=== PATIENT | female | born 1975 | race Caucasian/White ===

== ENCOUNTER 2016-12-03 09:30 | Emergency (ER) | payer MEDICAID ==
[~2016-12-03] VITALS: Wt 71.0 kg
[2016-12-03] MEDS ORDERED: ALBUTEROL 0.083% (NEB) 2.5 MG/3 ML AMP HHN STA (10:27)
[2016-12-03] MEDS ORDERED: predniSONE 20 MG TAB PO ONE (10:30)
[2016-12-03] MEDS ORDERED: CETI10CA PO (10:33)
[2016-12-03] MEDS ORDERED: FLUT9.9S NASAL (10:33)
[2016-12-03] MEDS ORDERED: PRED20TA PO (10:33)
[2016-12-03] MEDS ORDERED: ALBU8.5H3 INH (10:33)
--- NOTE | 2016-12-03 11:16 | ERD ---
ER Documentation Chief Complaint Date/Time DATE: 12/03/16 TIME: 11:14 Chief Complaint FLU SYMPTOMS X 3 DAYS HPI 41-year-old female comes emergency department cough, runny nose, congestion for 3 days. She reports that she does not have any history of asthma but states that she has been wheezing. She has suffered from allergy symptoms, complains of runny nose, and scant scratchy throat. She denies any fevers, chills. ROS All systems reviewed and are negative except as per history of present illness. Medications Home Meds Active Scripts Albuterol Sulfate* (Proair HFA*) 8.5 Gm Hfa.aer.ad, 2 PUFF INH Q4, #1 INHALER Prov:VERENICE HALL PA-C 12/03/16 Prednisone* (Prednisone*) 20 Mg Tab, 40 MG PO DAILY for 4 Days, TAB Prov:VERENICE HALL PA-C 12/03/16 Cetirizine Hcl* (Zyrtec*) 10 Mg Capsule, 10 MG PO DAILY, #60 TAB.CHEW Prov:VERENICE HALL PA-C 12/03/16 Fluticasone Propionate (Flonase Allergy Relief) 9.9 Ml [place].susp, 1 SPRAY NASAL BID, #1 BOTTLE TO EACH NOSTRIL Prov:VERENICE HALL PA-C 12/03/16 Allergies Allergies: Coded Allergies: No Known Allergy (Unverified , 01/26/15) PMhx/Soc Medical and Surgical Hx: pt denies Medical Hx, pt denies Surgical Hx Hx Alcohol Use: No Hx Substance Use: No Hx Tobacco Use: No Physical Exam Vitals Vital Signs Date Time Temp Pulse Resp B/P Pulse Ox O2 Delivery O2 Flow Rate FiO2 12/03/16 10:51 88 20 96 21 12/03/16 09:31 98.0 78 18 123/71 99 Physical Exam General: Well-developed, well-nourished. The patient appears in no acute distress. HEENT: Head is normocephalic, atraumatic. No scleral icterus. Oropharynx is clear, TMs normal. Neck: Supple. Nontender. Lungs: Scant wheezing in upper lung maldonado, no rales or rhonchi. Heart: Regular rate and rhythm. S1 and S2 are normal. No murmurs, gallops, or rubs. Abdomen: Nondistended. Extremities: No clubbing or cyanosis. Moving extremities x 4. No weakness. Neurologic: Alert and oriented 3. No focal deficits. Normal speech and gait. Skin: Normal turgor. No rash or lesions. Results 24 hrs Current Medications Medications (Trade) Dose Ordered Sig/Rivas Route PRN Reason Start Time Stop Time Status Last Admin Dose Admin Albuterol (Proventil 0.083% (Neb)) 5 mg ONCE STAT HHN 12/03/16 10:27 12/03/16 10:29 DC 12/03/16 10:50 Prednisone (Prednisone) 40 mg ONCE ONCE PO 12/03/16 10:30 12/03/16 10:31 DC 12/03/16 10:32 Procedures/MDM ED course: Patient was given prednisone, as well as albuterol nebulized breathing treatment. She was re auscultated and sounded clear and reports symptomatic improvement. The patient is a 41-year-old female who comes in with an acute upper respiratory infection, presumed viral, wheezing, allergic rhinitis. The patient has a differential diagnosis of a viral upper respiratory infection, bacterial upper respiratory infection, bronchitis, pneumonia, pharyngitis, laryngitis, epiglottitis, croup, pneumonia. Patient has a normal pulmonary examination, clear breath sounds, normal pulse oximetry, with no corrective measures needed at this time. Fluids, rest, antipyretics were encouraged. Departure Diagnosis: Primary Impression: Upper respiratory infection Condition: Good Patient Instructions: Allergic Rhinitis, Uri, Viral W/ Wheezing (Adult) Additional Instructions: Llame al doctor MAANA y vinnie mary BRITTNEY PARA DENTRO DE 1-2 WILDE.Dgale a la secretaria que nosotros le instruimos hacer esta brittney.Avise o llame si brannon condicin se empeora antes de la brittney. Regresa aqui si peor o no mejor. VERENICE HALL PA-C Dec 03, 2016 11:15
[2016-12-03 11:29] VITALS: BP 128/77; PULSE 96; RESP 18; TEMP 98
== END 2016-12-03 11:30 | disposition home or self-care (01) ==
LOC: FTE 09:30
DX: J06.9 Acute upper respiratory infection, unspecified (principal)
CPT/HCPCS: 94664; J7512; Z7502; Z7610

== ENCOUNTER 2017-06-15 15:27 | Emergency (ER) | payer MEDICAID ==
[~2017-06-15] VITALS: Ht 157.5 cm; Wt 73.0 kg
[~2017-06-15 15:27] MED LIST: ALBU8.5H3 INH; CETI10CA PO; FLUT9.9S NASAL; PRED20TA PO
[2017-06-15 15:31] VITALS: Ht 157.5 cm; Wt 73.0 kg
[2017-06-15] MEDS ORDERED: KETOROLAC 15 MG INJ IM STA (16:27)
--- NOTE | 2017-06-15 16:33 | ERD ---
ER Documentation Chief Complaint Date/Time DATE: 06/15/17 TIME: 16:25 Chief Complaint right arm and right side numbness HPI Right sided neck pain and tingeing , right sided camacho pain x 2 months ROS All systems reviewed and are negative except as per history of present illness. Medications Home Meds Active Scripts Diazepam* (Valium*) 5 Mg Tablet, 5 MG PO Q8 for MUSCLE SPASMS, #10 TAB Prov:PANDA,ARAVIND 06/15/17 Naproxen* (Naprosyn*) 500 Mg Tablet, 500 MG PO BID Y for PAIN AND/OR INFLAMMATION, #20 TAB Prov:PANDA,ARAVIND 06/15/17 Albuterol Sulfate* (Proair HFA*) 8.5 Gm Hfa.aer.ad, 2 PUFF INH Q4, #1 INHALER Prov:VERENICE HALL PA-C 12/03/16 Prednisone* (Prednisone*) 20 Mg Tab, 40 MG PO DAILY for 4 Days, TAB Prov:VERENICE HALL PA-C 12/03/16 Cetirizine Hcl* (Zyrtec*) 10 Mg Capsule, 10 MG PO DAILY, #60 TAB.CHEW Prov:VERENICE HALL PA-C 12/03/16 Fluticasone Propionate (Flonase Allergy Relief) 9.9 Ml [place].susp, 1 SPRAY NASAL BID, #1 BOTTLE TO EACH NOSTRIL Prov:VERENICE HALL PA-C 12/03/16 Allergies Allergies: Coded Allergies: No Known Allergy (Unverified , 01/26/15) PMhx/Soc History of Surgery: Yes () Anesthesia Reaction: No Hx Neurological Disorder: No Hx Respiratory Disorders: No Hx Cardiac Disorders: Yes (HTN, HEART MURMUR) Hx Psychiatric Problems: No Hx Miscellaneous Medical Probl: No Hx Alcohol Use: Yes (OCCASSIONAL) Hx Substance Use: No Hx Tobacco Use: No Smoking Status: Never smoker Physical Exam Vitals Vital Signs Date Time Temp Pulse Resp B/P Pulse Ox O2 Delivery O2 Flow Rate FiO2 06/15/17 15:31 98.0 77 19 175/92 100 Vitals stable, triage notes reviewed, patient noted to have blood pressure elevation at 175/92, patient reports she has hypertension and is on medication. Physical Exam Const: [ All nourished well-appearing well-hydrated 41-year-old female no acute distress Head: Eyes: Normal Conjunctiva, PERRLA, EOMI ENT: Neck: Nontender over bony prominence of the cervical spine, right- sided paraspinal tenderness, trapezial tenderness, and parascapular tenderness Resp: Patient is even and unlabored, no chest wall tenderness clear to auscultation bilaterally Cardio: Abd: Skin: No petechiae or rashes and no ecchymosis, laceration or abrasion Back Exam: Skin: No bruising or rash Compartments: Soft Motor: Leg rises live at 80, pain with abduction described as pulling sensation in lower back. Sensation: Intact to light touch throughout Bones: No midline TTP Ext: No cyanosis, or edema Neuro: M/S: Alert and oriented Face: EOMI, face and pharynx with normal sensation and function Motor: Normal strength throughout Sensation: Normal sensation throughout Speech: Normal Cerebel: Normal coordination Normal gait Normal finger to nose Psych: Normal Mood and Affect Results 24 hrs Current Medications Medications (Trade) Dose Ordered Sig/Rivas Route PRN Reason Start Time Stop Time Status Last Admin Dose Admin Ketorolac Tromethamine (Toradol) 15 mg ONCE STAT IM 06/15/17 16:27 06/15/17 16:41 DC 06/15/17 16:58 Diazepam (Valium) 5 mg ONCE ONCE PO 06/15/17 17:00 06/15/17 17:01 DC 06/15/17 16:58 Procedures/MDM PROCEDURE: XR Cervical Spine. CLINICAL INDICATION: Right body numbness TECHNIQUE: AP, lateral and odontoid views of the cervical spine were performed. The images were reviewed on a PACS workstation. COMPARISON: None available FINDINGS: There is normal alignment of the cervical spine, which is visualized from the level of C1 through C7. Vertebral body heights are maintained. Intervertebral disk spaces are preserved. There is no significant facet degenerative change. There is no evidence of fracture or dislocation. The atlantoaxial articulation appears grossly unremarkable. There is no prevertebral soft tissue swelling.. IMPRESSION: Normal cervical spine. No visualized fracture or dislocation. .Buck Conrad MD, MD Date Time Electronically viewed and signed by .Buck Conrad MD, on 06/15/2017 18:04 This 41-year-old female presents to emergency department with 2 month history of right-sided neck pain, numbness tingling radiating from her neck down to her arm. Patient also reports low back pain, and a tingling sensation intermittently in her right lower extremity with knee pain, patient reports a old work-related injury to the right knee, denies any new injury, motor vehicle accident, or mechanical slip and fall. Emergency room course today in includes history and physical exam, straight leg raises negative at 80, stretching felt with adduction suggestive of a spasm. I do not feel that a lumbar x-ray is indicated, plan to x-ray patient cervical spine suspected reversal of cervical lordosis, pain medication provided today includes Toradol 10 mg intramuscularly , 5 mg of Valium, patient will have someone pick her up, and drive her home. Cervical x-ray is read by radiologist normal cervical spine no visualized fracture or dislocation. Patient reassessed after medical intervention reports pain has decreased with Toradol and Valium. Discharge patient home with Naprosyn 500 mg 1 tab p.o. twice daily 10 days, Valium 5 mg 1 tab p.o. every 8 hours as needed count of 10. Follow-up with primary care physician for referral to physical therapy if symptoms fail to improve as anticipated. Patient is stable with no new complaints during ER course, clinically there is no current evidence to suggest meningitis, TIA, CVA, cervical spine mass, lesion , abscess or any other emergent condition appearing to require further evaluation or hospitalization. I feel the patient is stable for discharge at this time. I have discussed results, examination findings, the treatment plan with the patient and family present prior to discharge. Indications for emergent reevaluation, side effects of medication were also discussed. All questions were answered. Patient verbalizes understanding and agrees with plan of care. Departure Diagnosis: Primary Impression: Neck pain on right side Condition: Good [facility] Additional Instructions: Thank you for for coming to the [facility] for your care today. Please ask your nurse or provider if you have questions about your care today and do not leave until all your questions have been answered. Please use any medications given as directed and follow-up with your doctor (or the doctor you were referred to) in the next 2-3 days. If you do not have a primary care doctor you may follow up at the [facility] [place], [place] (listed below). You may also use motrin and tylenol as needed for fever and/or pain unless instructed otherwise by your provider or nurse. Indications for more urgent follow-up have been discussed, but you may return to the Emergency Department at ANY time for any worrisome or worsening symptoms. If you have abdominal pain, please know that no test or exam you received is perfect and you should follow up within 8 hours for continued pain. If you had any imaging studies today, such as an X-Ray or CT Scan, these studies will be reviewed later by a radiologist. You will be called if there are important findings that were not identified today, so make sure the contact information you provided at registration is correct. If you received any narcotic pain control medicine today, such as Vicodin, Morphine or Dilaudid, your coordination and judgment may be affected for a number of hours. Please do not drive or operate heavy machinery, and you may want someone to assist you at home. If you were given a prescription for narcotic medication, be aware that it is very addictive- use sparingly and only if necessary. ARAVIND MOSQUEDA Jun 15, 2017 16:33
[2017-06-15] MEDS ORDERED: DIAZEPAM 5 MG TAB PO ONE (17:00)
--- NOTE | 2017-06-15 18:04 | RADRPT ---
PROCEDURE: XR Cervical Spine. CLINICAL INDICATION: Right body numbness TECHNIQUE: AP, lateral and odontoid views of the cervical spine were performed. The images were re viewed on a PACS workstation. COMPARISON: None available FINDINGS: There is normal alignment of the cervical spine, which is visualized from the level of C1 through C7 . Vertebral body heights are maintained. Intervertebral disk spaces are preserved. There is no significant facet degenerative change. There is no evidence of fracture or dislocation. The atlantoaxial articulation appears grossly unremarkable. There is no prevertebral soft tissue swelling.. IMPRESSION: Normal cervical spine. No visualized fracture or dislocation. RPTAT: DD .Buck Conrad MD, MD Date Time Electronically viewed and signed by .Buck Conrad MD, on 06/15/2017 18:04 .T/
[2017-06-15] MEDS ORDERED: NAPR-260 PO (18:13)
[2017-06-15] MEDS ORDERED: DIAZ-90 PO (18:14)
[2017-06-15 18:37] VITALS: BP 174/87; PULSE 69; RESP 16
== END 2017-06-15 18:38 | disposition home or self-care (01) ==
LOC: FTE 15:27
DX: M54.2 Cervicalgia (principal); I10 Essential (primary) hypertension
CPT/HCPCS: 72040; 96372; J1885; Z7502; Z7610

== ENCOUNTER 2017-08-18 19:51 | Emergency (ER) | payer SELFPAY ==
[~2017-08-18] VITALS: Ht 167.6 cm; Wt 89.0 kg
[~2017-08-18 19:51] MED LIST changes: +DIAZ-90 PO; +NAPR-260 PO
[2017-08-18 20:22] VITALS: Ht 167.6 cm; Wt 89.0 kg
== END 2017-08-19 01:15 | disposition left against medical advice (07) ==
LOC: FTE 19:51
DX: Z53.21 Procedure and treatment not carried out due to patient leaving prior to being seen by health care provider (principal)

== ENCOUNTER 2017-09-23 20:56 | Emergency (ER) | END 2017-09-24 00:05 | disposition home or self-care (01) ==

== ENCOUNTER 2017-11-25 23:11 | Emergency (ER) | END 2017-11-26 02:19 | disposition home or self-care (01) ==

== ENCOUNTER 2018-08-30 12:28 | Observation (INO) | payer OTHER ==
[~2018-08-30] VITALS: Ht 180.8 cm; Wt 70.8 kg
[~2018-08-30 12:28] MED LIST changes: +ACET325T33 PO; +ALBU18HF INHALATION; -ALBU8.5H3 INH; +ALBU8.5H8 INH; +BENZ-6 PO; -DIAZ-90 PO; +DIAZ5TAB PO; +IBUP-1542 PO; -NAPR-260 PO; +NAPR-985 PO; +RANI150T35 PO
[2018-08-30 12:38] VITALS: Ht 180.8 cm; Wt 70.8 kg
[2018-08-30] MEDS ORDERED: NITROGLYCERIN 2% 1 GM OINT PKT TD STA (16:20)
[2018-08-30] MEDS ORDERED: ASPIRIN 325 MG TAB PO STA (16:20)
[2018-08-30] MEDS ORDERED: AMLO-145 PO (16:43)
[2018-08-30] MEDS ORDERED: LOSA50TA7 PO (16:44)
--- NOTE | 2018-08-30 16:46 | ERD ---
ER Documentation Chief Complaint Chief Complaint Patient complains of chest pain and SOB, pain radiating down the left arm HPI This is a 42-year-old female who is here for chest pain. 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 The patient yesterday had 2 episodes of 30- minute long substernal chest pressure episodes or shortness of breath. Is also complaining of orthopnea and dyspnea on exertion. She said the ER last night took an x-ray and told her she had a virus and sent her home however she not really having a cough or other respiratory symptoms. She says today that she is having 2 episodes of substernal chest pain again although a little bit different than the pressure with radiation down the left arm. Currently she has no sympt oms ROS All systems reviewed and are negative except as per history of present illness. Medications Home Meds Reported Medications Losartan Potassium* (Losartan Potassium*) 50 Mg Tablet, 50 MG PO BID, TAB 08/30/18 Amlodipine Besylate* (Amlodipine Besylate*) 5 Mg Tablet, 5 MG PO DAILY, #30 TAB 08/30/18 Discontinued Scripts Benzonatate* (Tessalon Perle*) 100 Mg Capsule, 100 MG PO Q8H PRN for COUGH, #30 CAP Prov:ALAINA TEIXEIRA MD 11/26/17 Ibuprofen* (Ibuprofen*) 600 Mg Tablet, 600 MG PO Q6H PRN for FEVER, #30 TAB Prov:ALAINA TEIXEIRA MD 11/26/17 Albuterol Sulfate* (Ventolin HFA*) 18 Gm Hfa.aer.ad, 2 PUFF INHALATION Q4H PRN for WHEEZING, #1 INHALER Prov:ALAINA TEIXEIRA MD 11/26/17 Ranitidine Hcl* (Zantac*) 150 Mg Tablet, 150 MG PO BID PRN for EPIGASTRIC PAIN, #30 TAB Prov:HARLEY GIBSON MD 09/23/17 Acetaminophen* (Tylenol*) 325 Mg Tablet, 1 TAB PO Q6 PRN for PAIN AND OR ELEVATED TEMP, #20 TAB Prov:HARLEY GIBSON MD 09/23/17 Diazepam* (Valium*) 5 Mg Tablet, 5 MG PO Q8 for MUSCLE SPASMS, #10 TAB Prov:PANDA,ARAVIND 06/15/17 Naproxen* (Naprosyn*) 500 Mg Tablet, 500 MG PO BID PRN for PAIN AND/OR INFLAMMATION, #20 TAB Prov:PANDA,ARAVIND 06/15/17 Albuterol Sulfate* (Proair HFA*) 8.5 Gm Hfa.aer.ad, 2 PUFF INH Q4, #1 INHALER Prov:VERENICE HALL PA-C 12/03/16 Prednisone* (Prednisone*) 20 Mg Tab, 40 MG PO DAILY for 4 Days, TAB Prov:VERENICE HALL PA-C 12/03/16 Cetirizine Hcl* (Zyrtec*) 10 Mg Capsule, 10 MG PO DAILY, #60 TAB.CHEW Prov:VERENICE HALL PA-C 12/03/16 Fluticasone Propionate (Flonase Allergy Relief) 9.9 Ml [place].susp, 1 SPRAY NASAL BID, #1 BOTTLE TO EACH NOSTRIL Prov:VERENICE HALL PA-C 12/03/16 Allergies Allergies: Coded Allergies: No Known Allergy (Unverified , 08/30/18) PMhx/Soc History of Surgery: Yes (amadeo, c-sections) Anesthesia Reaction: No Hx Neurological Disorder: No Hx Respiratory Disorders: No Hx Cardiac Disorders: Yes (HTN, HEART MURMUR) Hx Psychiatric Problems: No Hx Miscellaneous Medical Probl: Yes (fibromyalgia, HTN) Hx Alcohol Use: Yes (occasional) Hx Substance Use: No Hx Tobacco Use: No Smoking Status: Never smoker FmHx Family History: No coronary disease Physical Exam Vitals Vital Signs Date Temp Pulse Resp B/P (MAP) Pulse Ox O2 O2 Flow FiO2 Time Delivery Rate 08/30/18 81 21 159/80 Room Air 18:34 (106) 08/30/18 61 24 150/87 100 Nasal 2.0 17:27 (108) Cannula 08/30/18 98.1 58 15 184/79 100 Room Air 16:09 (114) 08/30/18 Nasal 2 16:00 Cannula 08/30/18 97.7 80 20 208/98 100 12:38 (134) Physical Exam Const: Well-developed, well-nourished Head: Atraumatic, normocephalic Eyes: Normal Conjunctiva, PERRLA, EOMI, normal sclera, no nystagmus ENT: Normal External Ears, Nose and Mouth, moist mucus membranes. Neck: Full range of motion. No meningismus, no lymphadenopathy. Resp: Clear to auscultation bilaterally, no wheezing, rhonchi, rales Cardio: Regular rate and rhythm, 3/6 systolic ejection murmur, S1 S2 present Abd: Soft, non tender x 4, non distended. Normal bowel sounds, no guarding or rebound, no pulsitile abdominal masses or bruits Skin: No petechiae or rashes, no ecchymosis , no maculopapular rash Back: No midline or flank tenderness Ext: No cyanosis, or edema, FROM x 4, normal inspection, neurovascularly intact x 4 Neur: Awake and alert, STR 5/5 x 4, sensation intact x 4, no focal findings, cerebellum intact Psych: Normal Mood and Affect Result Diagram: 08/30/18 1630 08/30/18 1630 Results 24 hrs Laboratory Tests Test 08/30/18 15:51 08/30/18 16:30 POC Beta HCG, Qualitative NEGATIVE White Blood Count 5.4 10^3/ul Red Blood Count 4.47 10^6/ul Hemoglobin 12.5 g/dl Hematocrit 38.9 % Mean Corpuscular Volume 87.0 fl Mean Corpuscular Hemoglobin 28.0 pg Mean Corpuscular Hemoglobin Concent 32.1 g/dl Red Cell Distribution Width 14.2 % Platelet Count 287 10^3/UL Mean Platelet Volume 10.0 fl Immature Granulocytes % 0.200 % Neutrophils % 47.8 % Lymphocytes % 41.1 % Monocytes % 8.3 % Eosinophils % 1.9 % Basophils % 0.7 % Nucleated Red Blood Cells % 0.0 /100WBC Immature Granulocytes # 0.010 10^3/ul Neutrophils # 2.6 10^3/ul Lymphocytes # 2.2 10^3/ul Monocytes # 0.5 10^3/ul Eosinophils # 0.1 10^3/ul Basophils # 0.0 10^3/ul Nucleated Red Blood Cells # 0.0 10^3/ul Sodium Level 137 mmol/L Potassium Level 3.6 mmol/L Chloride Level 105 mmol/L Carbon Dioxide Level 25 mmol/L Anion Gap 7 Blood Urea Nitrogen 8 mg/dl Creatinine 0.59 mg/dl Est Glomerular Filtrat Rate mL/min > 60 mL/min Glucose Level 98 mg/dl Calcium Level 9.1 mg/dl Total Bilirubin 0.5 mg/dl Direct Bilirubin 0.00 mg/dl Indirect Bilirubin 0.5 mg/dl Aspartate Amino Transf (AST/SGOT) 24 IU/L Alanine Aminotransferase (ALT/SGPT) 26 IU/L Alkaline Phosphatase 91 IU/L Troponin I < 0.012 ng/ml B-Type Natriuretic Peptide 151 PG/ML Total Protein 7.9 g/dl Albumin 4.4 g/dl Globulin 3.50 g/dl Albumin/Globulin Ratio 1.25 Current Medications Medications Dose Sig/Rivas Start Time Status Last (Trade) Ordered Route PRN Stop Time Admin Dose Reason Admin Aspirin 325 mg ONCE STAT 08/30/18 DC 08/30/18 (Aspirin) PO 16:20 16:31 08/30/18 16:22 1 inch ONCE STAT 08/30/18 DC 08/30/18 Nitroglycerin TD 16:20 16:32 08/30/18 (Nitroglyceri 16:22 n 2% Oint) Procedures/MDM EKG: Rate/Rhythm: Normal Sinus Rhythm,NL intervals QRS, ST, QT: NORMAL VA, QRS, QT] Impression: NORMAL EKG Ordering MD: DAY AUSTIN DO Location: E/R Room/Bed: PROCEDURE: XR Chest AP portable CLINICAL INDICATION: Chest pain TECHNIQUE: An AP portable radiograph of the chest was submitted. COMPARISON: None. FINDINGS: Support Hardware: None Cardiovascular: The cardiovascular silhouette appears unremarkable. Lung Myers: The lung myers appear clear with no nodule, alveolar infiltrate, or interstitial prominence evident. Pleural Spaces: No pneumothorax or pleural effusion is identified. Osseous Structures: The osseous structures appear intact. Soft Tissues: The soft tissues appear unremarkable. IMPRESSION: Unremarkable portable chest. Physician Tristian Date Time Electronically viewed and signed by Physician Tristian on 08/30/2018 16:57 RH/ CC: DAY AUSTIN DO [id number] Cardiac Admit MDM: Patient's symptoms are concerning for cardiac cause will require inpatient workup and continuous monitoring. Further w/u for ischemia, arrhythmia, PE or dissection will be deferred to the inpatient team. Departure Diagnosis: Primary Impression: Chest pain Chest pain type: unspecified Qualified Codes: R07.9 - Chest pain, unspecified Condition: Stable DAY AUSTIN DO Aug 30, 2018 16:46
[2018-08-30] MEDS ORDERED: ACETAMINOPHEN 325 MG TAB PO PRN (19:30)
[2018-08-30] MEDS ORDERED: ONDANSETRON 4 MG INJ IV PRN (19:30)
[2018-08-30 21:07] VITALS: PULSE 75
[2018-08-30 21:30] VITALS: BP 164/83; PULSE 68; RESP 20
--- NOTE | 2018-08-30 22:00 | NUR ---
Pt Refused to admission picture taken. Also pt refused bed alarm, able to ambulate steady to the bathroom. Encouraged pt to call for assist.
[2018-08-30] MEDS ORDERED: GABA300S PO (22:06)
[2018-08-30] MEDS ORDERED: GABA300C16 PO (22:09)
[2018-08-30] MEDS ORDERED: GABAPENTIN 300 MG CAP PO PRN (23:30)
[2018-08-31] VITALS (12 sets, daily range): BP systolic 124–154; BP diastolic 68–88; PULSE 58–80; RESP 17–19
[2018-08-31] MEDS: LOSARTAN 50 MG TAB PO SCH ×3 (00:52→20:05)
[2018-08-31] MEDS: PANTOPRAZOLE (EC) 40 MG TAB PO SCH (06:28)
--- NOTE | 2018-08-31 06:53 | NUR ---
EOSS Pt AAO x3. No s/s of respiratory distress or chest at this time. Pt c/o trigeminal nerve pain took gabapentin with good effect. No acute changes. Pt schedule to have Echo today
[2018-08-31] MEDS: ASPIRIN 81 MG TAB PO SCH (08:19)
[2018-08-31] MEDS: AMLODIPINE 5 MG TAB PO SCH (08:20)
--- NOTE | 2018-08-31 11:02 | HP ---
JASMEET ROSS 08/31/18 1102: Date/Time of Note Date/Time of Note DATE: 08/31/18 TIME: 11:02 Assessment/Plan VTE Prophylaxis Risk score (from Ns)>0 risk: 1 SCD applied (from Ns): Yes Pharmacological prophylaxis: LMWH Lines/Catheters IV Catheter Type (from Nrs): Saline Lock Urinary Cath still in place: No Assessment/Plan Hospital Course 1. Chest pain, r/o Acute coronary syndrome. Enzymes are negative, NSR on monitor. Some left side pain on palpation of chest 2. Elevated BNP 3. Hypertension 4. Fibromyalgia. 5. Hx of c section 6. Hx of cholecystectomy 7. Hx of anxiety Assessment/Plan - GI prophylaxis Protonix -telemonitoring -cardiology consult dr Yang -DVT prophylaxis start Lovenox -c/w Aspirin Result Diagram: 08/30/18 1630 08/30/18 1630 Results 24hrs Laboratory Tests Test 08/30/18 15:51 08/30/18 16:30 08/31/18 01:00 08/31/18 05:32 POC Beta HCG, NEGATIVE Qualitative White Blood 5.4 # Count Red Blood Count 4.47 Hemoglobin 12.5 Hematocrit 38.9 Mean Corpuscular 87.0 Volume Mean Corpuscular 28.0 L Hemoglobin Mean Corpuscular 32.1 Hemoglobin Mago nt Red Cell 14.2 Distribution Width Platelet Count 287 Mean Platelet 10.0 Volume Immature 0.200 Granulocytes % Neutrophils % 47.8 Lymphocytes % 41.1 Monocytes % 8.3 Eosinophils % 1.9 Basophils % 0.7 Nucleated Red 0.0 Blood Cells % Immature 0.010 Granulocytes # Neutrophils # 2.6 Lymphocytes # 2.2 Monocytes # 0.5 Eosinophils # 0.1 Basophils # 0.0 Nucleated Red 0.0 Blood Cells # Sodium Level 137 Potassium Level 3.6 Chloride Level 105 Carbon Dioxide 25 Level Anion Gap 7 Blood Urea 8 Nitrogen Creatinine 0.59 Est Glomerular > 60 Filtrat Rate mL/min Glucose Level 98 Calcium Level 9.1 Total Bilirubin 0.5 Direct Bilirubin 0.00 Indirect 0.5 Bilirubin Aspartate Amino 24 Transf (AST/SGOT ) Alanine 26 Aminotransferase (ALT/SGPT) Alkaline 91 Phosphatase Troponin I < 0.012 < 0.012 < 0.012 B-Type 151 H Natriuretic Peptide Total Protein 7.9 Albumin 4.4 Globulin 3.50 H Albumin/Globulin 1.25 Ratio Triglycerides 190 H Level Cholesterol 174 Level LDL Cholesterol, 83 Calculated HDL Cholesterol 53 Cholesterol/HDL 3.2 Ratio HPI/ROS Admit Date/Time Admit Date/Time Aug 30, 2018 at 19:15 Hx of Present Illness This is a 42-year-old female with history of fibromyalgia was seen in ER for chest pain. 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 The patient yesterday had 2 episodes of 30- minute long substernal chest pressure episodes or shortness of breath. Is also complaining of orthopnea and dyspnea on exertion. She said the ER last night took an x-ray and told her she had a virus and sent her home however she not really having a cough or other respiratory symptoms. She says today that she is having 2 episodes of substernal chest pain again although a little bit different than the pressure with radiation down the left arm. Currently she has no s ymptoms. ROS Cardiovascular: chest pain PMH/Family/Social Past Medical History Medical History: hypertension Medications Current Medications Ondansetron HCl (Zofran Inj) 4 mg ER BRIDGE PRN IV NAUSEA AND/OR VOMITING; Start 08/30/18 at 19:30; Stop 08/31/18 at 19:29 Acetaminophen (Tylenol Tab) 650 mg ER BRIDGE PRN PO MILD PAIN(1-3)OR ELEVATED TEMP; Start 08/30/18 at 19:30; Stop 08/31/18 at 19:29 Aspirin (Aspirin) 81 mg DAILY PO Last administered on 08/31/18at 08:19; Admin Dose 81 MG; Start 08/31/18 at 09:00 Pantoprazole (Protonix Tab) 40 mg DAILY@06 PO Last administered on 08/31/18at 06:28; Admin Dose 40 MG; Start 08/31/18 at 06:00 Gabapentin (Neurontin) 300 mg DAILY PRN PO PAIN Last administered on 08/31/18at 00:51; Admin Dose 300 MG; Start 08/30/18 at 23:30 Amlodipine Besylate (Norvasc) 5 mg DAILY PO Last administered on 08/31/18at 08:20; Admin Dose 5 MG; Start 08/31/18 at 09:00 Losartan Potassium (Cozaar) 50 mg BID PO Last administered on 08/31/18at 08:20; Admin Dose 50 MG; Start 08/31/18 at 00:36 Coded Allergies: No Known Allergy (Unverified , 08/30/18) Past Surgical History Past Surgical Hx: cholecystectomy, other (C section) Family History Significant Family History: no pertinent family hx Social History Alcohol Use: occasionally Smoking Status: Never smoker Drug Use: none Exam/Review of Systems Vital Signs Vitals Vital Signs Date Temp Pulse Resp B/P (MAP) Pulse Ox O2 O2 Flow FiO2 Time Delivery Rate 08/31/18 74 08:16 08/31/18 97.9 18 137/73 96 07:43 (94) 08/30/18 Room Air 20:47 08/30/18 2.0 17:27 Intake and Output 08/30/18 08/30/18 08/31/18 1515:00 23:00 07:00 IntakeIntake Total 200 ml OutputOutput Total 1 ml BalanceBalance 199 ml Exam Constitutional: alert, oriented Respiratory: clear to auscultation, normal air movement Cardiovascular: regular rate and rhythm Gastrointestinal: surgical scars NAINA LEE MD 08/31/18 1713: Assessment/Plan Assessment/Plan Assessment/Plan seen and examined with [facility] [employer] cp+exewrtion had workup at [facility] stress test d dimer Result Diagram: 08/30/18 1630 08/30/18 1630 PMH/Family/Social Past Medical History Coded Allergies: No Known Allergy (Unverified , 08/30/18) JASMEET HAILE Aug 31, 2018 11:02 NAINA LEE MD Aug 31, 2018 17:13
--- NOTE | 2018-08-31 11:28 | NUR ---
SW: AHCD & INITIAL PSYCHOSOCIAL ASSESSMENT SW met with this 42-year-old Ecuadorean/ Yi speaking female at bedside for AHCD & initial psychosocial assessment. Patient denies having an AHCD, and she verbally designated her father Eddy Osborn ([phone]) as surrogate spokesperson. Pt states she lives at home with her parents and children at [address] [place] [address]. 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 States shes independent at home with ADL's, and states she drives a car. Patient denies having any questions/ concerns at this time. SW remains available as needed.
--- NOTE | 2018-08-31 15:14 | RADRPT ---
Echocardiogram Report Patient Name: WILFREDO DOE Gender: Female Date: 1975 Study Date: 31-Aug-2018 Dial Marker: Ean Ferreira [facility] Location: [id number] Ref. Physician: JOHANNA SHETH Quality: Good Procedures: Transthoracic echocardiogram with complete 2D, M-Mode, and doppler examination. Indications: Chest Pain. 2D/M Mode Doppler Measurement Value Normal Ranges Measurement Value Normal Ranges LVIDd 2D 5.2 3.5 - 5.6 cm AV Peak Tj 1.9 m/sec LVIDs 2D 3.0 2.1 - 4.1 cm AV Peak PG 14.0 mmHg LVPWd 2D 1.0 0.6 - 1.1 cm LVOT Peak Tj 1.2 m/sec IVSd 2D 0.8 0.6 - 1.1 cm LVOT Peak PG 6.0 mmHg AoR Diam 2D 2.3 2.0 - 3.7 cm MV E Peak Tj 1.1 m/sec LA/Ao 2D 2 0 - 1 MV A Peak Tj 0.9 m/sec LA Dimen 2D 3.5 2.3 - 4.0 cm MV E/A 1.3 MV Decel Time 320 msec Lat E` Tj 0.1 m/sec Lateral E/E` 12.5 MV E/A 1.3 Findings Left Ventricle: Normal left ventricular systolic function. Normal left ventricular cavity size. Normal left ventricular wall thickness. Ejection fraction is visually estimated at 5560 %. Tissue Doppler/Mitral Doppler indices are within normal limits. Right Ventricle: Normal right ventricular size. Normal right ventricular systolic function. Left Atrium: The left atrium is normal in size. Right Atrium: The right atrium is normal in size. Mitral Valve: Normal appearance and function of the mitral valve with trace physiologic regurgitation. Aortic Valve: No significant aortic stenosis or insufficiency. Aortic cusps appear mildly calcified. Tricuspid Valve: Normal appearance of the tricuspid valve. Unable to obtain RVSP due to minimal presence of tricuspid regurgitation. Pulmonic Valve: Normal pulmonic valve appearance. Pericardium: Normal pericardium with no significant pericardial effusion. Aorta: Normal aortic root. IVC: Normal size and normal respiratory collapse consistent with normal right atrial pressure. Conclusions Normal left ventricular systolic function. Normal left ventricular cavity size. Normal left ventricular wall thickness. Ejection fraction is visually estimated at 55-60 %. Tissue Doppler/Mitral Doppler indices are within normal limits. Normal appearance and function of the mitral valve with trace physiologic regurgitation. Normal appearance of the tricuspid valve. Unable to obtain RVSP due to minimal presence of tricuspid regurgitation. Electronically Signed By: Spencer Yang 31-Aug-2018 15:13:33 -0800 Patient Name: WILFREDO DOE Study Date: 31-Aug-2018 [id number]
[2018-08-31] MEDS: ENOXAPARIN 30 MG/0.3 ML SYG SC SCH (15:35)
--- NOTE | 2018-08-31 16:06 | PDOCDIS ---
Discharge Instructions CONDITION [id number] Patient Condition: [id number] Stable HOME CARE INSTRUCTIONS: [id number] Diet Instructions: [id number] Reduced Sodium ACTIVITY: [id number] Activity Restrictions: [id number] Slowly Increase Activity Rest between Activity Avoid heavy lifting FOLLOW UP/APPOINTMENTS Follow-up Plan PCP 1 week SCHOOL/WORK RELEASE May return to School/Work with: No Restrictions JASMEET HAILE Aug 31, 2018 16:06
[2018-08-31] MEDS ORDERED: ASPI-831 PO (16:08)
[2018-08-31] MEDS ORDERED: LOSA50TA7 PO (16:08)
[2018-08-31] MEDS ORDERED: AMLO-145 PO (16:08)
[2018-08-31] MEDS ORDERED: GABA300C16 PO (16:08)
--- NOTE | 2018-08-31 16:09 | DS ---
Date/Time of Note Date/Time of Note DATE: 08/31/18 TIME: 16:08 Discharge Summary Admission/Discharge Info Admit Date/Time Aug 30, 2018 at 19:15 Discharge Date/Time Discharge Diagnosis Fibromyalgia. Patient Condition: Stable Hospital Course This is a 42-year-old female with history of fibromyalgia was seen in ER for chest pain. 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 The patient yesterday had 2 episodes of 30- minute long substernal chest pressure episodes or shortness of breath. Is also complaining of orthopnea and dyspnea on exertion. She said the ER last night took an x-ray and told her she had a virus and sent her home however she not really having a cough or other respiratory symptoms. She says today that she is having 2 episodes of substernal chest pain again although a little bit different than the pressure with radiation down the left arm. Currently she has no symptoms. 1. Chest pain, r/o Acute coronary syndrome. Enzymes are negative, NSR on monitor. Some left side pain on palpation of chest 2. Elevated BNP 3. Hypertension 4. Fibromyalgia. 5. Hx of c section 6. Hx of cholecystectomy 7. Hx of anxiety During hospitalization pt was on telemetry service with SR,cardiology consult dr Yang monitored her and performed stress test, that is negative. Pt had GI prophylaxis Protonix, DVT prophylaxis with Lovenox. she was recommended to start with Aspirin. Pt is d/charged after all negative tests. Home Meds Active Scripts Aspirin (Aspirin) 81 Mg Chew, 81 MG PO DAILY for 30 Days, TAB Prov:JASMEET HAILE 08/31/18 Amlodipine Besylate* (Amlodipine Besylate*) 5 Mg Tablet, 5 MG PO DAILY for 30 Days, TAB Prov:JASMEET HAILE 08/31/18 Gabapentin* (Gabapentin*) 300 Mg Capsule, 300 MG PO DAILY PRN for PAIN for 30 Days, #60 CAP Prov:JASMEET HAILE 08/31/18 Losartan Potassium* (Losartan Potassium*) 50 Mg Tablet, 50 MG PO BID for 30 Days, TAB Prov:JASMEET HAILE 08/31/18 Reported Medications Amlodipine Besylate* (Amlodipine Besylate*) 5 Mg Tablet, 5 MG PO DAILY, #30 TAB 08/30/18 Discontinued Scripts Benzonatate* (Tessalon Perle*) 100 Mg Capsule, 100 MG PO Q8H PRN for COUGH, #30 CAP Prov:ALAINA TEIXEIRA MD 11/26/17 Ibuprofen* (Ibuprofen*) 600 Mg Tablet, 600 MG PO Q6H PRN for FEVER, #30 TAB Prov:ALAINA TEIXEIRA MD 11/26/17 Albuterol Sulfate* (Ventolin HFA*) 18 Gm Hfa.aer.ad, 2 PUFF INHALATION Q4H PRN for WHEEZING, #1 INHALER Prov:ALAINA TEIXEIRA MD 11/26/17 Ranitidine Hcl* (Zantac*) 150 Mg Tablet, 150 MG PO BID PRN for EPIGASTRIC PAIN, #30 TAB Prov:HARLEY GIBSON MD 09/23/17 Acetaminophen* (Tylenol*) 325 Mg Tablet, 1 TAB PO Q6 PRN for PAIN AND OR ELEVATED TEMP, #20 TAB Prov:HARLEY GIBSON MD 09/23/17 Diazepam* (Valium*) 5 Mg Tablet, 5 MG PO Q8 for MUSCLE SPASMS, #10 TAB Prov:PANDA,ARAVIND 06/15/17 Naproxen* (Naprosyn*) 500 Mg Tablet, 500 MG PO BID PRN for PAIN AND/OR INFLAMMATION, #20 TAB Prov:PANDA,ARAVIND 06/15/17 Albuterol Sulfate* (Proair HFA*) 8.5 Gm Hfa.aer.ad, 2 PUFF INH Q4, #1 INHALER Prov:VERENICE HALL PA-C 12/03/16 Prednisone* (Prednisone*) 20 Mg Tab, 40 MG PO DAILY for 4 Days, TAB Prov:VERENICE HALL PA-C 12/03/16 Cetirizine Hcl* (Zyrtec*) 10 Mg Capsule, 10 MG PO DAILY, #60 TAB.CHEW Prov:VERENICE HALL PA-C 12/03/16 Fluticasone Propionate (Flonase Allergy Relief) 9.9 Ml [place].susp, 1 SPRAY NASAL BID, #1 BOTTLE TO EACH NOSTRIL Prov:VERENICE HALL PA-C 12/03/16 Follow-up Plan PCP 1 week Primary Care Provider Care Physician No Primary Time spent on discharge: < 30 minutes Pending Labs Laboratory Tests Test 08/30/18 16:30 08/31/18 01:00 08/31/18 05:32 08/31/18 14:18 White Blood 5.4 Count 10^3/ul (4.8-10 .8) Red Blood 4.47 Count 10^6/ul (4.20-5 .40) Hemoglobin 12.5 g/dl (12.0-16.0 ) Hematocrit 38.9 % (37.0-47.0) Mean 87.0 Corpuscular fl (82.0-101.0) Volume Mean 28.0 Corpuscular pg (29.0-33.0) Hemoglobin Mean 32.1 Corpuscular g/dl (32.0-37.0 Hemoglobin Conc ) ent Red Cell 14.2 Distribution % (11.5-14.5) Width Platelet Count 287 10^3/UL (140-41 5) Mean Platelet 10.0 Volume fl (7.4-10.4) Immature 0.200 Granulocytes % % (0.001-0.429) Neutrophils % 47.8 % (39.0-77.0) Lymphocytes % 41.1 % (15.0-51.0) Monocytes % 8.3 % (0.0-11.0) Eosinophils % 1.9 % (0.0-7.0) Basophils % 0.7 % (0.0-2.0) Nucleated Red 0.0 Blood Cells % /100WBC (0.0-0. 0) Immature 0.010 Granulocytes # 10^3/ul (0.0-0. 031) Neutrophils # 2.6 10^3/ul (1.6-7. 5) Lymphocytes # 2.2 10^3/ul (0.8-2. 9) Monocytes # 0.5 10^3/ul (0.3-0. 9) Eosinophils # 0.1 10^3/ul (0.0-0. 5) Basophils # 0.0 10^3/ul (0.0-0. 1) Nucleated Red 0.0 Blood Cells # 10^3/ul (0.0-0. 0) Sodium Level 137 mmol/L (135-144 ) Potassium 3.6 Level mmol/L (3.5-5.1 ) Chloride Level 105 mmol/L (97-110) Carbon Dioxide 25 Level mmol/L (21-31) Anion Gap 7 (5-13) Blood Urea 8 mg/dl (7-20) Nitrogen Creatinine 0.59 mg/dl (0.44-1.0 0) Est Glomerular > 60 Filtrat mL/min (>60) Rate mL/min Glucose Level 98 mg/dl (70-220) Calcium Level 9.1 mg/dl (8.4-10.2 ) Total 0.5 Bilirubin mg/dl (0.2-1.3) Direct 0.00 Bilirubin mg/dl (0.00-0.2 0) Indirect 0.5 Bilirubin mg/dl (0-1.1) Aspartate Amino 24 IU/L (15-46) Transf (AST/SGO T) Alanine 26 IU/L (13-69) Aminotransferas e (ALT/SGPT) Alkaline 91 Phosphatase IU/L (42-121) Troponin I < 0.012 < 0.012 < 0.012 < 0.012 ng/ml (0.000-0. ng/ml (0.000-0 ng/ml (0.000-0 ng/ml (0.000-0 120) .120) .120) .120) B-Type 151 Natriuretic PG/ML (0-125) Peptide Total Protein 7.9 g/dl (6.1-8.1) Albumin 4.4 g/dl (3.3-4.9) Globulin 3.50 g/dl (1.3-3.2) Albumin/Globuli 1.25 n Ratio Triglycerides 190 Level mg/dl (0-149) Cholesterol 174 Level mg/dl (100-200 ) LDL 83 mg/dl Cholesterol, Calculated HDL 53 Cholesterol mg/dl (34-88) Cholesterol/HDL 3.2 RATIO Ratio JASMEET HAILE Aug 31, 2018 16:09
--- NOTE | 2018-08-31 18:37 | NUR ---
EOSS Pt ao x 4 and stable at this time. Pt in no distress noted throughout the shift. Pt denies any pain at this time. Pt was updated regarding plan of care. All needs met. Pt is scheduled for stress test tomorrow 09/01/2018 and will be kept NPO except meds post midnight. Will endorse to next shift accordingly. Hourly rounding provided. Call light within reach.
--- NOTE | 2018-08-31 19:03 | CONS ---
DATE OF ADMISSION: 08/30/2018 DATE OF CONSULTATION: 08/31/2018 REASON FOR CONSULTATION: Chest pain, assess for acute coronary syndrome. REQUESTING PHYSICIAN: Dr. Polanco. HISTORY OF PRESENT ILLNESS: Ms. Osborn is a 42-year-old female with a history of hypertension and fi bromyalgia who presented with complaints of substernal chest pain that occurred while she was driving . The patient states that she had a pressure-like squeezing sensation on the left side of her chest that radiated to her left arm, lasting a minute and occurring multiple times. The patient subsequent ly presented to the emergency department where upon arrival, temperature 97.7, blood pressure markedl y elevated at 208/98, pulse 80, respiratory rate 20, satting 100%. The patient's lab revealed white blood cell count 5.4, hemoglobin 12.5, platelet count 287; sodium 137, potassium 3.6, creatinine 0.5, BUN 8; troponin negative; BNP of 151; LDL 83, HDL 53. The patient underwent a chest x-ray revealing unremarkable portable chest. The patient's electrocardiogram revealed sinus rhythm, rate of 73, nor mal axis, normal intervals, isolated T-wave flattening in aVL. The patient subsequently admitted to the floor and since admit to the floor denies ongoing chest pain. She has had negative troponins x3. PAST MEDICAL HISTORY: As above in HPI. MEDICATIONS CURRENTLY IN HOSPITAL: 1. Aspirin 81 mg daily. 2. Norvasc 5 mg daily. 3. Protonix 40 mg daily. 4. Cozaar 50 mg p.o. b.i.d. 5. Neurontin ____. 5. Tylenol p.r.n. 6. Zofran p.r.n. ALLERGIES: NO KNOWN DRUG ALLERGIES. SOCIAL HISTORY: No current tobacco. Social EtOH. No illicit drug use. FAMILY HISTORY: No history of sudden cardiac or early CAD. REVIEW OF SYSTEMS: As above in HPI. CONSTITUTIONAL: No fevers or chills. PULMONARY: No current shortness of breath. CARDIOVASCULAR: Intermittent chest pain. GASTROINTESTINAL: No vomiting. GENITOURINARY: No hematuria. MUSCULOSKELETAL: Degenerative joint disease. PSYCHIATRIC: The patient has depression. NEUROLOGIC: No documented history of CVA. ENDOCRINE: No documented history of diabetes mellitus. PHYSICAL EXAMINATION: VITAL SIGNS: Temperature of 98.4, blood pressure most recently ____/82, pulse 75, respiratory rate 1 8, satting 99%. GENERAL: The patient is alert, awake, no acute distress. NECK: JVP approximately 8 to 9 cm of water. CHEST: Fair air movement throughout. HEART: Regular rate and rhythm, normal S1 and S2, I/ systolic murmur, nondisplaced PMI. ABDOMEN: Positive bowel sounds, soft. EXTREMITIES: No significant pitting edema, 1+ pulses in bilateral posterior tibial. LABORATORIES: Most recently from today: Troponin negative x3. LDL 83, HDL 53. IMAGING STUDIES: As above in HPI. No further imaging studies for my review at this time. ECG: As above in HPI. No further electrocardiograms for my review at this time. IMPRESSION: 1. Chest pain, assess for acute coronary syndrome. 2. Abnormal electrocardiogram, assess for acute coronary syndrome. 3. Hypertension, somewhat labile. 4. History of fibromyalgia. 5. Mildly elevated BNP. RECOMMENDATIONS: 1. At this time, we would maintain the patient on telemetry monitoring to follow rhythm and rate con trol closely. 2. The patient is status post negative troponin x3. We will obtain one additional as the last two w ere sent 4 hours apart to ensure that patient has not had any recent coronary syndrome lending to gu[address]ita [address] pain and admit to the hospital. 3. We will continue the patient's current aspirin for prophylaxis against cardiovascular events. 4. We will continue patient's current Norvasc with up-titration as necessary to improve overall syst olic blood pressure control. Continue the patient's losartan at this time. 5. We will follow up the patient's 2D echo done for assessment of ejection fraction, wall motion, ru le out any major abnormalities. 6. If patient does continue to remain pain-free and at that time if echo returns with no significant abnormalities, okay for discharge with further outpatient evaluation including outpatient stress jessi ting. Thank you for allowing me to take part in the care of this patient. I will continue to follow along very closely with you with further recommendations to be made as the patient progresses through the [facility] [employer] [facility] clinical course. Dictated By: RUSTY QUINTANILLA/WALTER Conf#: [id number] DID#: [id number] CC: JOHANNA SHETH MD; DR. POLANCO;*EndCC*
[2018-09-01] VITALS (10 sets, daily range): BP systolic 109–132; BP diastolic 59–69; PULSE 56–77; RESP 18–20
[2018-09-01] MEDS: PANTOPRAZOLE (EC) 40 MG TAB PO SCH (06:21)
--- NOTE | 2018-09-01 06:23 | NUR ---
EOSS AAOx4, O2 sat 98% on RA, no complaints of pain, no signs of acute distress. Hourly rounding done, encouraged pt. to reposition self in bed frequently. Patient was kept NPO after midnight except meds for stress test scheduled today. Patient stable at this time, will endorse to oncoming shift.
--- NOTE | 2018-09-01 08:30 | NUR ---
Patient refused to take AM medication at this time. Verbalized, "I'll take them after the test.".
[2018-09-01] MEDS ORDERED: REGADENOSON 0.4 MG/5 ML SYG ONE (10:58)
--- NOTE | 2018-09-01 12:46 | CONS ---
Date/Time of Note Date/Time of Note DATE: 09/01/18 TIME: 12:42 Assessment/Plan Assessment/Plan Hospital Course IMPRESSION: 1. Chest pain, assess for acute coronary syndrome.-neg trop x 3/NL EF by echo 2. Abnormal electrocardiogram, assess for acute coronary syndrome. 3. Hypertension, somewhat labile. 4. History of fibromyalgia. 5. Mildly elevated BNP. Recc: -Tele -Continue asa -Continue losartan/norvasc -Lexiscan stress test today and if negative for ischemia then ok for d/c from cardiac standpoint Result Diagram: 09/01/18 0539 09/01/18 0539 Results 24hrs Laboratory Tests Test 08/31/18 14:18 08/31/18 17:57 09/01/18 05:39 Troponin I < 0.012 D-Dimer 248.22 D-Dimer Comment White Blood Count 6.2 Red Blood Count 3.93 L Hemoglobin 11.3 L Hematocrit 33.7 L Mean Corpuscular Volume 85.8 Mean Corpuscular Hemoglobin 28.8 L Mean Corpuscular 33.5 Hemoglobin Concent Red Cell Distribution Width 14.4 Platelet Count 248 Mean Platelet Volume 10.0 Immature Granulocytes % 0.200 Neutrophils % 50.3 Lymphocytes % 37.8 Monocytes % 8.5 Eosinophils % 2.6 Basophils % 0.6 Nucleated Red Blood Cells % 0.0 Immature Granulocytes # 0.010 Neutrophils # 3.1 Lymphocytes # 2.4 Monocytes # 0.5 Eosinophils # 0.2 Basophils # 0.0 Nucleated Red Blood Cells # 0.0 Sodium Level 141 Potassium Level 4.1 Chloride Level 108 Carbon Dioxide Level 26 Anion Gap 7 Blood Urea Nitrogen 18 # Creatinine 0.87 Est Glomerular Filtrat > 60 Rate mL/min Glucose Level 105 Calcium Level 9.3 Consultation Date/Type/Reason Admit Date/Time Aug 30, 2018 at 19:15 Initial Consult Date 08/31/18 Type of Consult cardiology Reason for Consultation Chest pain Requesting Provider: NAINA LEE MD Exam/Review of Systems Vital Signs Vitals Vital Signs Date Temp Pulse Resp B/P (MAP) Pulse Ox O2 O2 Flow FiO2 Time Delivery Rate 09/01/18 70 12:09 09/01/18 98.7 18 132/69 99 Room Air 11:46 (90) 08/30/18 2.0 17:27 Intake and Output 12/08/31/18 09/01/18 1515:00 23:00 07:00 IntakeIntake Total 0 ml OutputOutput Total 2 ml BalanceBalance -2 ml Exam Review of Systems: CONSTITUTIONAL: No fevers, chills. PULMONARY: No sob CARDIOVASCULAR:intermittent chest pain GASTROINTESTINAL: No nausea/vomiting. GENITOURINARY: No hematuria/dysuria. MUSCULOSKELETAL: No myagias/arthalgias. PSYCHIATRIC: The patient denies depression. NEUROLOGIC: No weakness Constitutional: alert, oriented Psych: no complaints Head: normocephalic ENMT: mucosa pink and moist Neck: supple, jvd (9 cm water) Respiratory: clear to auscultation Cardiovascular: regular rate and rhythm Gastrointestinal: soft, non-tender Musculoskeletal: muscle tone (normal) Extremities: edema (none) Neurological: other (No focal deficits) Medications Medications Current Medications Aspirin (Aspirin) 81 mg DAILY PO Last administered on 08/31/18at 08:19; Admin Dose 81 MG; Start 08/31/18 at 09:00 Pantoprazole (Protonix Tab) 40 mg DAILY@06 PO Last administered on 09/01/18at 06:21; Admin Dose 40 MG; Start 08/31/18 at 06:00 Gabapentin (Neurontin) 300 mg DAILY PRN PO PAIN Last administered on 08/31/18at 00:51; Admin Dose 300 MG; Start 08/30/18 at 23:30 Amlodipine Besylate (Norvasc) 5 mg DAILY PO Last administered on 08/31/18at 08:20; Admin Dose 5 MG; Start 08/31/18 at 09:00 Losartan Potassium (Cozaar) 50 mg BID PO Last administered on 08/31/18at 20:05; Admin Dose 50 MG; Start 08/31/18 at 00:36 Enoxaparin Sodium (Lovenox) 30 mg DAILY SC Last administered on 08/31/18at 15:35; Admin Dose 30 MG; Start 08/31/18 at 15:30 RUSTY BEVERLY Sep 01, 2018 12:46
[2018-09-01] MEDS: LOSARTAN 50 MG TAB PO SCH (13:41)
[2018-09-01] MEDS: ASPIRIN 81 MG TAB PO SCH (13:41)
[2018-09-01] MEDS: AMLODIPINE 5 MG TAB PO SCH (13:41)
[2018-09-01] MEDS: ENOXAPARIN 30 MG/0.3 ML SYG SC SCH (13:45)
--- NOTE | 2018-09-01 16:35 | PN ---
Date/Time of Note Date/Time of Note DATE: 09/01/18 TIME: 16:34 Assessment/Plan VTE Prophylaxis Risk score (from Ns)>0 risk: 1 SCD applied (from Ns): No SCD contraindicated: low risk/ambulating Pharmacological prophylaxis: NA/contraindicated Pharm contraindication: low risk/ambulating Lines/Catheters IV [facility] Saline Lock Urinary Cath still in place: No Assessment/Plan Hospital Course This is a 42-year-old female with history of fibromyalgia was seen in ER for chest pain. 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 The patient yesterday had 2 episodes of 30- minute long substernal chest pressure episodes or shortness of breath. Is also complaining of orthopnea and dyspnea on exertion. She said the ER last night took an x-ray and told her she had a virus and sent her home however she not really having a cough or other respiratory symptoms. She says today that she is having 2 episodes of substernal chest pain again although a little bit different than the pressure with radiation down the left arm. Currently she has no symptoms. 1. Chest pain, r/o Acute coronary syndrome. Enzymes are negative, NSR on monitor. Some left side pain on palpation of chest 2. Elevated BNP 3. Hypertension 4. Fibromyalgia. 5. Hx of c section 6. Hx of cholecystectomy 7. Hx of anxiety Assessment/Plan - stress test is negative -pt is d/charged -GI prophylaxis Protonix -telemonitoring -cardiology consult dr Yang -DVT prophylaxis Lovenox -c/w Aspirin Result Diagram: 09/01/18 0539 09/01/18 0539 Results 24hrs Laboratory Tests Test 08/31/18 17:57 09/01/18 05:39 D-Dimer 248.22 D-Dimer Comment White Blood Count 6.2 Red Blood Count 3.93 L Hemoglobin 11.3 L Hematocrit 33.7 L Mean Corpuscular Volume 85.8 Mean Corpuscular Hemoglobin 28.8 L Mean Corpuscular Hemoglobin Concent 33.5 Red Cell Distribution Width 14.4 Platelet Count 248 Mean Platelet Volume 10.0 Immature Granulocytes % 0.200 Neutrophils % 50.3 Lymphocytes % 37.8 Monocytes % 8.5 Eosinophils % 2.6 Basophils % 0.6 Nucleated Red Blood Cells % 0.0 Immature Granulocytes # 0.010 Neutrophils # 3.1 Lymphocytes # 2.4 Monocytes # 0.5 Eosinophils # 0.2 Basophils # 0.0 Nucleated Red Blood Cells # 0.0 Sodium Level 141 Potassium Level 4.1 Chloride Level 108 Carbon Dioxide Level 26 Anion Gap 7 Blood Urea Nitrogen 18 # Creatinine 0.87 Est Glomerular Filtrat Rate mL/min > 60 Glucose Level 105 Calcium Level 9.3 Subjective 24 Hr Interval Summary Constitutional: no complaints, improved Exam/Review of Systems Vital Signs Vitals Vital Signs Date Temp Pulse Resp B/P (MAP) Pulse Ox O2 O2 Flow FiO2 Time Delivery Rate 09/01/18 70 16:10 09/01/18 98.4 20 114/67 99 Room Air 16:00 (83) 08/30/18 2.0 17:27 Intake and Output 08/31/18 08/31/18 09/01/18 1515:00 23:00 07:00 IntakeIntake Total 0 ml OutputOutput Total 2 ml BalanceBalance -2 ml Exam Constitutional: alert, oriented Cardiovascular: regular rate and rhythm Medications Medications Current Medications Aspirin (Aspirin) 81 mg DAILY PO Last administered on 09/01/18 13:41; Admin Dose 81 MG; Start 08/31/18 at 09:00 Pantoprazole (Protonix Tab) 40 mg DAILY@06 PO Last administered on 09/01/18at 06:21; Admin Dose 40 MG; Start 08/31/18 at 06:00 Gabapentin (Neurontin) 300 mg DAILY PRN PO PAIN Last administered on 08/31/18at 00:51; Admin Dose 300 MG; Start 08/30/18 at 23:30 Amlodipine Besylate (Norvasc) 5 mg DAILY PO Last administered on 09/01/18 13:41; Admin Dose 5 MG; Start 08/31/18 at 09:00 Losartan Potassium (Cozaar) 50 mg BID PO Last administered on 09/01/18 13:41; Admin Dose 50 MG; Start 08/31/18 at 00:36 Enoxaparin Sodium (Lovenox) 30 mg DAILY SC Last administered on 09/01/18 13:45; Admin Dose 30 MG; Start 08/31/18 at 15:30 JASMEET HAILE Sep 01, 2018 16:35
--- NOTE | 2018-09-01 17:15 | NUR ---
DISCHARGE Patient is alert and oriented to person, place, and time. no shortness of breath noted. no complaint of pain. Patient is ambulatory with steady gait. Rendered discharge teaching to patient regarding medications and follow up appointment with PCP. Patient able to verbalize understanding. IV and ID band removed prior to discharge. Refused wheelchair for transport to discharge area.
--- NOTE | 2018-09-01 23:23 | CARRPT ---
DATE OF PROCEDURE: 09/01/2018 TYPE OF PROCEDURE: Lexiscan Cardiolite stress test, electrocardiogram portion. REASON FOR STRESS TESTING: Chest pain, assess for ischemia. BASELINE VITAL SIGNS AND ELECTROCARDIOGRAM: Pulse 66, blood pressure 127/82. Electrocardiogram norm al sinus rhythm, rate of 65, normal axis, normal intervals. T-wave flattening in inferior leads. PROCEDURE: The patient with standard Lexiscan infusion protocol over 10 seconds followed by radiolab eled tracer. The patient's test was stopped due to completion of protocol. Maximal achieved blood p ressure during the test 142/80. Maximum heart rate during the test 97. ELECTROCARDIOGRAM FINDINGS: The patient did not develop any new Lexiscan-induced ST or T-wave change s from baseline abnormalities taken and the patient had somewhat frequent premature ventricular contr actions during stress testing. SYMPTOMS: The patient had no complaints of chest pain or shortness of breath during stress testing. IMPRESSION: 1. No Lexiscan-induced ST or T-wave changes from baseline abnormalities that are diagnostic for isch emia. 2. No complaints of chest pain or shortness of breath during stress test. 3. Positive premature ventricular contractions during stress test. 4. Report of nuclear images to follow in separate dictation. Dictated By: RUSTY QUINTANILLA/WALTER Conf#: [id number] DID#: [id number] CC: JOHANNA SHETH MD;*End*
== END 2018-09-01 17:15 | disposition home or self-care (01) ==
LOC: E/R 12:28 → TEL 19:15
PROVIDERS: ADMIT Internal Medicine Nephrology; ATTEND Internal Medicine Nephrology
DX: R07.89 Other chest pain (principal); R00.2 Palpitations; I10 Essential (primary) hypertension; M79.7 Fibromyalgia
CPT/HCPCS: 36415; 71045; 78452; 80048; 80053; 80061; 81025; 83880; 84484; 85025; 85378; 93005; 93017; 93306; A9500; A9505; J1650; J2785; Z7500; Z7502; Z7610; G0378

== ENCOUNTER 2019-03-22 14:01 | Emergency (ER) | payer OTHER ==
[~2019-03-22] VITALS: Ht 154.9 cm; Wt 70.5 kg
[~2019-03-22 14:01] MED LIST changes: -ACET325T33 PO; -ALBU18HF INHALATION; -ALBU8.5H8 INH; +AMLO-145 PO; +ASPI-831 PO; -BENZ-6 PO; -CETI10CA PO; -DIAZ5TAB PO; -FLUT9.9S NASAL; +GABA300C16 PO; -IBUP-1542 PO; +LOSA50TA14 PO; -NAPR-985 PO; -PRED20TA PO; -RANI150T35 PO
[2019-03-22 14:14] VITALS: Ht 154.9 cm; Wt 70.5 kg
[2019-03-22] MEDS ORDERED: SOD CHLORIDE 0.9% 1,000 ML IV STA (14:58)
[2019-03-22] MEDS ORDERED: KETOROLAC 30 MG INJ IV STA (14:58)
[2019-03-22] MEDS ORDERED: ONDANSETRON 4 MG INJ IV STA (14:58)
[2019-03-22] MEDS ORDERED: LIDOCAINE/MYLANTA 40 ML BTL PO ONE (15:00)
[2019-03-22] MEDS ORDERED: LOSA50TA14 PO (15:50)
[2019-03-22] MEDS ORDERED: PANT40TA3 PO (16:40)
[2019-03-22 17:00] VITALS: BP 155/96; PULSE 85; RESP 16
--- NOTE | 2019-03-22 18:12 | ERD ---
ER Documentation Chief Complaint Chief Complaint ABD PAIN X 3 DAYS WITHOUT N/V/D. BILATERAL FOOT RASH X 3 DAYS. HPI Patient is a 43-year-old female with hypertension and gastritis who presents with abdominal pain. The patient has midepigastric abdominal pain. She says that pressing on the area hurts. She also complains of a rash to her bilateral feet. The symptoms started yesterday. She said today the pain was worse. She has no fevers. She denies nausea, vomiting, or diarrhea. She does not currently have a primary doctor. Upon review of old medical records this is the patient's 11th visit to the ER since 2005. ROS All systems reviewed and are negative except as per history of present illness. Medications Home Meds Active Scripts Pantoprazole* (Protonix*) 40 Mg Tablet.dr, 40 MG PO DAILY, #20 TAB Prov:KEYONA KNOWLES MD 03/22/19 Reported Medications Losartan Potassium* (Losartan Potassium*) 50 Mg Tablet, 50 MG PO BID, TAB 03/22/19 Amlodipine Besylate* (Amlodipine Besylate*) 5 Mg Tablet, 5 MG PO DAILY, #30 TAB 08/30/18 Discontinued Scripts Aspirin (Aspirin) 81 Mg Chew, 81 MG PO DAILY for 30 Days, TAB Prov:JASMEET HAILE 08/31/18 Amlodipine Besylate* (Amlodipine Besylate*) 5 Mg Tablet, 5 MG PO DAILY for 30 Days, TAB Prov:JASMEET HAILE 08/31/18 Gabapentin* (Gabapentin*) 300 Mg Capsule, 300 MG PO DAILY PRN for PAIN for 30 Days, #60 CAP Prov:JASMEET HAILE 08/31/18 Losartan Potassium* (Losartan Potassium*) 50 Mg Tablet, 50 MG PO BID for 30 Days, TAB Prov:JASMEET HAILE 08/31/18 Allergies Allergies: Coded Allergies: No Known Allergy (Unverified , 03/22/19) PMhx/Soc History of Surgery: Yes (, gallstones removal) Anesthesia Reaction: No Hx Neurological Disorder: No Hx Respiratory Disorders: Yes (PNA) Hx Cardiac Disorders: Yes (HTN, HLD) Hx Psychiatric Problems: No Hx Miscellaneous Medical Probl: No Hx Alcohol Use: Yes (occaionally) Hx Substance Use: No Hx Tobacco Use: Yes Smoking Status: Light tobacco smoker FmHx Family History: No diabetes Physical Exam Vitals Vital Signs Date Temp Pulse Resp B/P (MAP) Pulse Ox O2 O2 Flow FiO2 Time Delivery Rate 03/22/19 85 16 155/96 98 Room Air 17:00 (115) 03/22/19 98.3 77 16 183/86 99 14:14 (118) Physical Exam Const: No acute distress Head: Atraumatic Eyes: Normal Conjunctiva ENT: Normal External Ears, Nose and Mouth. Neck: Full range of motion. No meningismus. Resp: Clear to auscultation bilaterally Cardio: Regular rate and rhythm, no murmurs Abd: Soft, epigastric tenderness to palpation without rebound or guarding Skin: No petechiae or rashes Back: No midline or flank tenderness Ext: No cyanosis, or edema Neur: Awake and alert Psych: Normal Mood and Affect Result Diagram: 03/22/19 1523 03/22/19 1523 Results 24 hrs Laboratory Tests Test 03/22/19 15:23 03/22/19 15:35 White Blood Count 6.7 10^3/ul Red Blood Count 4.31 10^6/ul Hemoglobin 12.3 g/dl Hematocrit 38.0 % Mean Corpuscular Volume 88.2 fl Mean Corpuscular Hemoglobin 28.5 pg Mean Corpuscular Hemoglobin Concent 32.4 g/dl Red Cell Distribution Width 15.0 % Platelet Count 287 10^3/UL Mean Platelet Volume 9.1 fl Immature Granulocytes % 0.300 % Neutrophils % 63.0 % Lymphocytes % 25.4 % Monocytes % 8.8 % Eosinophils % 1.9 % Basophils % 0.6 % Nucleated Red Blood Cells % 0.0 /100WBC Immature Granulocytes # 0.020 10^3/ul Neutrophils # 4.2 10^3/ul Lymphocytes # 1.7 10^3/ul Monocytes # 0.6 10^3/ul Eosinophils # 0.1 10^3/ul Basophils # 0.0 10^3/ul Nucleated Red Blood Cells # 0.0 10^3/ul Urine Color COLORLESS Urine Clarity CLEAR Urine pH 8.0 Urine Specific [place]away 1.002 Urine Ketones NEGATIVE mg/dL Urine Nitrite NEGATIVE mg/dL Urine Bilirubin NEGATIVE mg/dL Urine Urobilinogen NEGATIVE mg/dL Urine Leukocyte Esterase NEGATIVE Padmaja/ul Urine Hemoglobin NEGATIVE mg/dL Urine Glucose NEGATIVE mg/dL Urine Total Protein NEGATIVE mg/dl Sodium Level 140 mmol/L Potassium Level 3.4 mmol/L Chloride Level 103 mmol/L Carbon Dioxide Level 28 mmol/L Anion Gap 9 Blood Urea Nitrogen 10 mg/dl Creatinine 0.64 mg/dl Est Glomerular Filtrat Rate mL/min > 60 mL/min Glucose Level 93 mg/dl Calcium Level 9.3 mg/dl Total Bilirubin 0.4 mg/dl Direct Bilirubin 0.00 mg/dl Indirect Bilirubin 0.4 mg/dl Aspartate Amino Transf (AST/SGOT) 31 IU/L Alanine Aminotransferase (ALT/SGPT) 19 IU/L Alkaline Phosphatase 83 IU/L Total Protein 8.4 g/dl Albumin 4.5 g/dl Globulin 3.90 g/dl Albumin/Globulin Ratio 1.15 Lipase 158 U/L POC Beta HCG, Qualitative NEGATIVE Current Medications Medications Dose Sig/Rivas Start Time Status Last (Trade) Ordered Route PRN Stop Time Admin Dose Reason Admin Sodium 1,000 ml @ Q1H STAT 03/22/19 DC 03/22/19 Chloride 1,000 mls/hr IV 14:58 15:36 03/22/19 15:57 Ondansetron 4 mg ONCE STAT 03/22/19 DC 03/22/19 HCl (Zofran IV 14:58 15:37 Inj) 03/22/19 15:00 Ketorolac 30 mg ONCE STAT 03/22/19 DC 03/22/19 Tromethamine IV 14:58 15:37 (Toradol) 03/22/19 15:00 40 ml ONCE ONCE 03/22/19 DC 03/22/19 Miscellaneous PO 15:00 15:37 Medication 03/22/19 15:01 (Gi Cocktail (2)) Procedures/MDM She is a 43-year-old female presents with abdominal pain. The patient has midepigastric abdominal pain that hurts with palpation. Lipase was normal, LFTs were normal. I do not believe the patient requires further work-up or admission the hospital at this time. She has had cholecystectomy in the past. I doubt appendicitis, cholecystitis, pancreatitis, or bowel obstruction. I believe outpatient management is appropriate but the patient will need close follow-up with her primary doctor at the local clinics within 24 to 48 hours. She does not currently have a primary doctor I gave her information for the local clinics. Departure Diagnosis: Primary Impression: Abdominal pain Abdominal location: epigastric Qualified Codes: R10.13 - Epigastric pain Condition: Fair Patient Instructions: Abdominal Pain [facility] Usted se valencia hecho un examen mdico de control que le indica que no est en mary condicin que requiera tratamiento urgente en el Departamento de Emergencia. Un estudio ms profundo y el tratamiento de brannon condicin pueden esperar sin ningn riesgo hasta que usted sea atendida/o en el consultorio de brannon mdico o mary clnica. Es responsabilidad suya arreglar mary brittney para el seguimiento del nancy. MANEJO DE CONDICIONES NO URGENTES EN EL FUTURO 1) Si usted tiene un mdico de atencin primaria: Usted debera llamar a brannon mdico de atencin primaria antes de venir al departamento de emergencia. Despus de las horas de consultorio, brannon doctor o brannon asociado/a est disponible por telfono. El mdico o enfermero de shelley en el servicio telefnico puede asesorarle por sylvia medio para atender el problema, o nancy contrario se puede programar mary brittney. 2) Si usted no tiene un mdico de atencin primaria: Llame al mdico o clnica de referencia que aparece abajo ellen las horas de consultorio para hacer mary brittney para que le vean. CLINICAS: [facility] [phone] [id number] [facility] [phone] [facility] [phone] [facility] [phone] [facility]. [facility] [phone] [id number] [facility]. [phone] [address] Additional Instructions: Llame al doctor MAANA y vinnie mary BRITTNEY PARA DENTRO DE 1-2 WILDE.Dgale a la secretaria que nosotros le instruimos hacer esta brittney.Avise o llame si brannon condicin se empeora antes de la brittney. Regresa aqui si peor o no mejor. KEYONA KNOWLES MD Mar 22, 2019 18:12
== END 2019-03-22 17:31 | disposition home or self-care (01) ==
LOC: E/R 14:01
DX: R10.13 Epigastric pain (principal); I10 Essential (primary) hypertension; F17.210 Nicotine dependence, cigarettes, uncomplicated
CPT/HCPCS: 36415; 80053; 81003; 81025; 83690; 85025; 96374; 96375; J1885; J2405; J7030; Z7502; Z7610

== ENCOUNTER 2019-04-24 11:20 | Emergency (ER) | payer OTHER ==
[~2019-04-24] VITALS: Ht 154.9 cm; Wt 71.3 kg
[~2019-04-24 11:20] MED LIST changes: +ALBU8.5H8 INH; +AMLO2.5T78 PO; -ASPI-831 PO; -GABA300C16 PO; +GUAI120S25 PO; +PANT40TA3 PO
[2019-04-24 11:34] VITALS: BP 178/83; PULSE 81; RESP 18; Ht 154.9 cm; Wt 71.3 kg
== END 2019-04-24 12:47 | disposition home or self-care (01) ==
LOC: FTE 11:20
DX: J20.9 Acute bronchitis, unspecified (principal); I10 Essential (primary) hypertension; Z76.0 Encounter for issue of repeat prescription
CPT/HCPCS: 99283